=== PATIENT | male | born 1990 | race Two or more races ===

== ENCOUNTER 2022-02-24 09:10 | Emergency (ER) | payer SELFPAY ==
[~2022-02-24] VITALS: Ht 175.3 cm; Wt 74.8 kg
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
[2022-02-24] MEDS ORDERED: diphenhydrAMINE HCL 50 MG/ML VIAL ONE (09:19)
[2022-02-24] MEDS ORDERED: OLANZAPINE 10 MG VIAL IM ONE ×2 (09:19→09:30)
--- NOTE | 2022-02-24 09:20 | NUR ---
the patient was placed - ER 12; security for wanding 1:1 sitter for safety [employer] at bedside
--- NOTE | 2022-02-24 09:21 | NUR ---
seen by Dr. Schuster with orders for zyprexa 10 mg with benadryl IM x 1
[2022-02-24] MEDS ORDERED: diphenhydrAMINE HCL 50 MG/ML VIAL IM ONE (09:30)
[2022-02-24 09:41] LABS: BASOPHILS % (AUTO) 0.4 % (0.0-2.0); EOSINOPHILS % (AUTO) 1.3 % (0.0-6.0); HEMATOCRIT 41 % (39-51); HEMOGLOBIN 13.9 g/dL (13.5-17.5); LYMPHOCYTES # (AUTO) 2.5 K/uL (0.8-4.8); LYMPHOCYTES % (AUTO) 25.7 % (20.0-44.0); MEAN CORPUSCULAR HGB CONC 34 g/dl (31.0-36.0); MEAN CORPUSCULAR VOLUME 80 fL (80-96); MONOCYTES # (AUTO) 0.8 K/uL (0.1-1.30); MONOCYTES % (AUTO) 8.3 % (2.0-12.0); NEUTROPHILS # (AUTO) 6.2 K/uL (1.8-8.9); NEUTROPHILS % (AUTO) 64.3 % (43.0-81.0); PLATELET COUNT (AUTO) 272 K/uL (150-450); RED BLOOD CELL COUNT(AUTO) 5.08 MIL/uL (4.5-6.0); WHITE BLOOD COUNT (AUTO) 9.6 K/uL (4.3-11.0)
[2022-02-24 10:25] LABS: BILIRUBIN,URINE NEGATIVE (NEGATIVE); COLOR,URINE YELLOW (YELLOW); LEUKOCYTE ESTERASE ,URINE MODERATE (NEGATIVE); NITRITE, URINE NEGATIVE (NEGATIVE); PROTEIN,URINE NEGATIVE (NEGATIVE); UGLUCOSE NEGATIVE (NEGATIVE); UROBILINOGEN,URINE 0.2 EU/dL (0.2)
[2022-02-24 10:28] LABS: ALANINE AMINOTRANSFERASE 37 U/L (12-78); ALBUMIN 3.8 g/dL (3.4-5.0); ALCOHOL, BLOOD < 3 mg/dL (0-0); ALKALINE PHOSPHATASE 48 U/L (46-116); ASPARTATE AMINOTRANSFERASE 28 U/L (15-37); BILIRUBIN,DIRECT 0.1 mg/dL (0.0-0.2); BILIRUBIN,TOTAL 0.4 mg/dL (0.2-1.0); CALCIUM, SERUM 8.6 mg/dL (8.5-10.1); CREATININE 1.2 mg/dL (0.6-1.3); GLUCOSE 93 mg/dL (74-106); TOTAL PROTEIN, SERUM 7.4 g/dL (6.4-8.2); UREA NITROGEN, BLOOD 6 mg/dL (7-18)
[2022-02-24 10:30] LABS: ACETAMINOPHEN < 10 ug/ml (10-30)
[2022-02-24 10:33] LABS: CARBON DIOXIDE 27 mmol/L (21-32); CHLORIDE 106 mmol/L (98-107); POTASSIUM 3.1 mmol/L (3.5-5.1); SODIUM SERUM 143 mmol/L (136-145)
[2022-02-24 11:08] LABS: RBC,URINE 0-2 /HPF (0-2)
[2022-02-24 11:09] LABS: BACTERIA,URINE None seen /HPF (None Seen); SQUAMOUS EPITHELIAL CELL,UR None Seen /HPF (None Seen)
[2022-02-24] MEDS ORDERED: POTASSIUM CHLORIDE 20 MEQ TAB.PRT.SR PO ONE ×2 (12:30→12:33)
--- NOTE | 2022-02-24 12:31 | NUR ---
BIOMEDICAL EQUIPMENT TECHNICIAN AT BEDSIDE
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
[2022-02-24 13:15] VITALS: BP 126/68
== END 2022-02-24 13:35 ==
LOC: ER 09:15
DX: F15.10 Other stimulant abuse, uncomplicated (principal)
CPT/HCPCS: 99284; 96372 ×2; 85025; 80048; 87086; 80076; 81001; 36415; 80143; 80320; 80307; J1200; J3490; G0480